=== PATIENT | female | born 2005 | race Caucasian/White ===

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

== ENCOUNTER 2025-03-08 00:38 | Day surgery (SDC) | payer OTHER, SELFPAY ==
[2025-03-07 18:38] VITALS: BP 109/78
--- NOTE | 2025-03-07 20:37 | ED.GENMED ---
History of Present Illness
<Samantha Toth MD, Resident - Last Filed: 03/08/25 00:40>
General
Chief Complaint: Foreign Body Ingestion
Source: patient and family
Time Seen by Provider: 03/07/25 20:11
History of Present Illness
History of Present Illness:
Alondra is a 19-year-old female with asthma who presents to the ED after accidental ingestion of glass shards from broken glass straw. She reports that around 4:15 PM today she was having ice coffee with a glass straw at home. She noticed some
crystals in her mouth and soon realized that it was glass and not sugar. She went to the sink to dump the coffee and saw her coffee glass had glass shards on the bottom from a broken glass straw. She denies bleeding in her mouth however, endorses
cough and waxing and waning chest pain since ingestion.
Past History
<Samantha Toth MD, Resident - Last Filed: 03/08/25 00:40>
Past History
ED Past Medical History: Asthma (childhood)
ED Past Surgical History: None
Review of Systems
<Samantha Toth MD, Resident - Last Filed: 03/08/25 00:40>
Review of Systems
Allergies reviewed?: No
All Other Systems: ROS reviewed and negative except as documented in HPI and ROS
Phy Exam
<Samantha Toth MD, Resident - Last Filed: 03/08/25 00:40>
General Physical Exam
General Presentation: well appearing and no apparent distress
General Skin: warm and dry
General Habitus: normal
General Mental: alert
General Hydration: appears well hydrated
ENT Exam
ENT Exam: EOMI, pharynx normal, neck supple, normocephalic and swallowing well
Cardiovascular Exam
Cardiovascular Exam: regular rate/rhythm
Pulmonary Exam
Pulmonary Exam: lungs clear, no respiratory distress and chest non tender
Gastrointestinal Exam
Gastrointestinal Exam: normal bowel sounds, non tender, soft and non distended
Course
<Ustriston Toth MD, Resident - Last Filed: 03/08/25 00:40>
Orders/Labs/Results
Orders:
Orders
03/07/25 18:43
CR Soft Tissue Neck Urgent
Comment: straw
Reason For Exam: possibly indigested glass chips from her glass
Chest [CR Chest - 2 Views ] Urgent
Comment:
Reason For Exam: possbily indigested chips from glass straw
03/07/25 22:12
CT Abd/pelvis W Iv Cont Urgent
Comment:
Reason For Exam: foreign body ingestion
03/07/25 22:13
0.9% Sodium Chloride 1000 ml [Nss] 1,000 ml IV BOLUS
03/07/25 22:21
IV Insert/Care/Rem.- Treatment PRN
Test Result ONCE
03/07/25 22:33
Complete Blood Count/With Diff Urgent
Comprehensive Metabolic Panel Urgent
HCG, Serum Qualitative Screen Urgent
Abnormal Lab Results
03/07/25
22:33
MCH 31.5 H pg
(27.0-31.0)
03/07/25 22:33
03/07/25 22:33
Vital Signs
Initial and Last Documented VS:
Initial Vital Signs
Temp Pulse Resp BP Pulse Ox
98.0 F 74 16 109/78 98
03/07/25 18:38 03/07/25 18:38 03/07/25 18:38 03/07/25 18:38 03/07/25 18:38
Last Documented Vital Signs
Temp Pulse Resp BP Pulse Ox
98.0 F 84 18 116/81 99
03/07/25 18:38 03/08/25 01:20 03/08/25 01:20 03/08/25 01:20 03/08/25 01:20
<Onel Oro, DO - Last Filed: 03/08/25 03:08>
Orders/Labs/Results
Orders:
Orders
03/07/25 18:43
CR Soft Tissue Neck Urgent
Comment: straw
Reason For Exam: possibly indigested glass chips from her glass
Chest [CR Chest - 2 Views ] Urgent
Comment:
Reason For Exam: possbily indigested chips from glass straw
03/07/25 22:12
CT Abd/pelvis W Iv Cont Urgent
Comment:
Reason For Exam: foreign body ingestion
03/07/25 22:13
0.9% Sodium Chloride 1000 ml [Nss] 1,000 ml IV BOLUS
03/07/25 22:21
IV Insert/Care/Rem.- Treatment PRN
Test Result ONCE
03/07/25 22:33
Complete Blood Count/With Diff Urgent
Comprehensive Metabolic Panel Urgent
HCG, Serum Qualitative Screen Urgent
Abnormal Lab Results
03/07/25
22:33
MCH 31.5 H pg
(27.0-31.0)
03/07/25 22:33
03/07/25 22:33
Vital Signs
Initial and Last Documented VS:
Initial Vital Signs
Temp Pulse Resp BP Pulse Ox
98.0 F 74 16 109/78 98
03/07/25 18:38 03/07/25 18:38 03/07/25 18:38 03/07/25 18:38 03/07/25 18:38
Last Documented Vital Signs
Temp Pulse Resp BP Pulse Ox
98.0 F 84 18 116/81 99
03/07/25 18:38 03/08/25 01:20 03/08/25 01:20 03/08/25 01:20 03/08/25 01:20
<Samantha Toth MD, Resident - Last Filed: 03/08/25 00:40>
MDM/Problems Addressed
MDM/Problems Addressed:
Alondra is a 19-year-old female with asthma who presents to the ED after accidental ingestion of glass shards from broken glass straw.
#Foreign Body Ingestion, glass shards
- Soft Tissue Neck XR unremarkable. No radiopaque foreign body.
- CXR without acute cardiopulmonary abnormality. No radiopaque foreign body.
- Spoke to GI outside installation machinist (Dr. Wright) who recommended CT A/P with IV contrast:
-- Prelim report by Dr. Parker was unremarkable
-- Communicated to GI, who felt patient should have EGD for further and more specific evaluation
-- GI to perform EGD overnight
<Samantha Toth MD, Resident - Last Filed: 03/08/25 00:40>
*Pulse Oximetry
SaO2: 98
Oxygen Mode of Delivery: Room air
Patient hypoxic: no
*Critical Care Note
Total Time (30-74mins, 75-104mins- exclusive of procedures): Not Applicable
ED Attending Note
<Samantha Toth MD, Resident - Last Filed: 03/08/25 00:40>
-
Portions of this chart may have been created with voice recognition software.� Occasional wrong word or��sound alike� substitutions may have occurred due to the inherent limitations of voice recognition software.
<Onel Oro, DO - Last Filed: 03/08/25 03:08>
ED Attending Note
Patient seen and examined by attending physician: Yes
I performed a history and physical exam of patient and discussed management with resident, I reviewed resident's note and agree with documented findings and plan of care.: Yes
ED Attending Note:
I reviewed and agree with history and treatment plan by Samantha Toth MD. My exam revealed 19-year-old female in no acute distress, but complaining of abdominal pain after accidentally swallowing glass. No acute findings on CT abdomen pelvis.
Gastroenterology to take for EGD.
Discharge Plan
Departure
Patient Disposition: GI LAB
Date of Disposition: 03/08/25
Time of Disposition: 00:09
Admit to: GI lab
Admit to doctor: Dr. Wright
Presentation/result/management discussed w/ accepting MD/DO: Dr. Wright
Patient with high blood pressure during this ER visit?: No
Condition: Good
Discharge Problem:
Foreign body ingestion
Interventions
Interventions:
*Risk Screen - Suicide Last Done: 03/07/25 18:38
*General Assessment Last Done: 03/08/25 01:17
*Neglect/Abuse Screening Last Done: 03/07/25 18:38
*ED- Fall Risk Assessment Last Done: 03/07/25 22:57
*ED COVID-19 Vaccine History Last Done: 03/07/25 22:57
*Nursing Disposition Last Done: 03/08/25 01:17
TA-Yisgiz-Yojqfjmqqm Assessment Last Done: 03/07/25 20:15
ED- Pulmonary Assessment Last Done: 03/07/25 20:15
ED-EENT Assessment Last Done: 03/07/25 20:15
Discharge Date and Time
Discharge Date/Time: 03/08/25 01:17
[2025-03-07 21:53] VITALS: BP 107/65
[2025-03-07 22:40] LABS: Hematocrit 39.6 % (37.0-47.0); Hemoglobin 13.7 g/dL (12.0-16.0); Mean Corp Hgb Conc. 34.6 g/dL (33.0-37.0); Mean Corpuscular Volume 91.0 fL (81.0-99.0); Nucleated Red Blood Cells % 0 %; Platelet Count 267 10^3/uL (130-400); Red Cell Dist. Width 11.7 % (11.5-14.5)
[2025-03-07] MEDS: NSS 1000 IV (22:44)
[2025-03-07 22:52] LABS: HCG, Serum Qualitative Screen Negative
[2025-03-07 22:56] LABS: ALT (SGPT) 18 U/L (0-35); AST (SGOT) 18 U/L (14-36); Albumin 4.6 g/dl (3.5-5.0); Alkaline Phosphatase 77 U/L (38-126); Blood Urea Nitrogen 16 mg/dl (7-17); Calcium 9.8 mg/dl (8.4-10.2); Carbon Dioxide 28 mmol/L (22-30); Chloride 103 mmol/L (98-107); Glucose 86 mg/dl (70-99); Potassium 4.4 mmol/L (3.5-5.1); Sodium 137 mmol/L (135-145); Total Protein 7.2 g/dl (6.3-8.2); eGFR > 60.00
--- NOTE | 2025-03-08 00:57 | CON.GI ---
Consultation
-
Date/Time Consultation Requested: 03/07/2025, 10pm
Date/Time Consultation Performed: 03/08/2025, 1am
Requesting Provider: Dr. Toth resident
Performing Provider: Dr. Wright
Reason for Consultation: foreign body
Medical History
Chief Complaint / HPI
Chief Complaint: foreign body
History of Present Illness:
19 yo F here with foreign body.
Swallowed pieces of glass straw from coffee at 4:15pm.
Since then having intermittent epigastric/chest pain 09/12, wax/wane.
Pt had neck Xr, CXR which were negative.
Past Medical History
Past Medical History: Asthma
Past Surgical History: None
Social History
Tobacco: Non-Smoker
Alcohol: Occasional
Drug: None
Family History
Family History: Reviewed & Not Pertinent
Allergies / Home Medications
Allergy/AdvReac Type Severity Reaction Status Date / Time
cefdinir (From Omnicef) Allergy Intermediate Rash Verified 03/07/25 18:43
amoxicillin Allergy Mild Rash Verified 03/07/25 18:43
�Medication �Instructions �Recorded
prednisolone sodium phosphate 15 30 mg (10 mL) PO DAILY #20 mL 02/09/16
mg/5 mL (3 mg/mL) oral solution
albuterol sulfate 2.5 mg/3 mL 2.5 mg (3 mL) inhalation Q4H PRN 08/22/24
(0.083 %) solution for nebulization shortness of breath or wheezing
#180 mL
prednisone 10 mg tablet See Rx Instructions .Route 08/22/24
.COMPLEX #30 tabs
triamcinolone acetonide 55 mcg 2 spray intranasal DAILY #16.9 mL 08/22/24
nasal spray aerosol (Nasacort)
Review of Systems
-
All other systems: A 12 pt ROS was Negative except as stated above in HPI
Vital Signs
Temp Pulse Resp BP Pulse Ox
98.0 F 54 16 107/65 100
03/07/25 18:38 03/07/25 21:53 03/07/25 21:53 03/07/25 21:53 03/07/25 21:53
Physical Exam
Exam
General: Well Developed
HEENT: Normocephalic
Respiratory: Clear
Cardiac: S1/S2
GI: Non Tender and Non Distended
Neuro: AO x 3
Psych: Calm
Results
WBC 7.2 10^3/uL (4.8-10.8) 03/07/25:
Hgb 13.7 g/dL (12.0-16.0) 03/07/25:
Hct 39.6 % (37.0-47.0) 03/07/25:
MCV 91.0 fL (81.0-99.0) 03/07/25 22:
Plt Count 267 10^3/uL (130-400) 03/07/25 22:33
Absolute Neuts (auto) 4.3 10^3/uL (1.4-6.5) 03/07/25 22:33
Sodium 137 mmol/L (135-145) 03/07/25:
Potassium 4.4 mmol/L (3.5-5.1) 03/07/25:
Chloride 103 mmol/L (98-107) 03/07/25 22:
Carbon Dioxide 28 mmol/L (22-30) 03/07/25:
BUN 16 mg/dl (7-17) 03/07/25:
Creatinine 0.7 mg/dL (0.6-1.0) 03/07/25:
Calcium 9.8 mg/dl (8.4-10.2) 03/07/25:
Total Bilirubin 0.9 mg/dl (0.2-1.3) 03/07/25:
AST 18 U/L (14-36) 03/07/25 22:33
ALT 18 U/L (0-35) 03/07/25 22:33
Alkaline Phosphatase 77 U/L (38-126) 03/07/25 22:33
Diagnostic Image Results:
Prior GI Procedures:
EGD:
Colonoscopy:
Assessment / Plan
-
19 yo F here after swallowing shards of glass from her coffee straw. Had some epigastric/chest pain.
I d/w resident recommended urgent CT to ensure no perf - CT per night hawk read negative. No glass seen.
However, small pieces of glass may be missed. My suspicion is it passed to the small bowel and will not be able to be retrieved but given it is shards of glass and sharp will do EGD today to attempt urgent retrieval if it is in the stomach/duodenum.
R/a/b explained to pt and mom risks inc but no limited to bleeding, infection, perforation.
If not retrieved today pt given strict instructions to return to ER with pain, fevers.
-
-
Thank you for consultation and allowing me to participate in the patient's care. Please call the research environmental scientist GI physician during the after hours with any questions or concerns.
[2025-03-08 01:20] VITALS: BP 116/81
== END 2025-03-08 13:34 | disposition home or self-care (01) ==
LOC: GI 00:38
PROVIDERS: ATTENDING PHYSICIAN Internal Medicine Gastroenterology; EMERGENCY PHYSICIAN Emergency Medicine; FAMILY PHYSICIAN Pediatrics
DX: T18.9XXA Foreign body of alimentary tract, part unspecified, initial encounter (principal); W44.C1XA Sharp glass entering into or through a natural orifice, initial encounter; Z03.821 Encounter for observation for suspected ingested foreign body ruled out
CPT/HCPCS: 43235; 70360; 71046; 74177; 80053; 84703; 85025; 96360; 99285; Q9967